=== PATIENT | male | born 1990 | race African-American/Black ===

== ENCOUNTER 2018-06-20 14:15 | Emergency (ER) | payer SELFPAY ==
[~2018-06-20] VITALS: Ht 177.8 cm; Wt 70.0 kg
[2018-06-20 14:30] VITALS: BP 117/71
--- NOTE | 2018-06-20 14:30 | NUR ---
PT AMBULATES BACK TO THE LOBBY
--- NOTE | 2018-06-20 16:55 | NUR ---
CALLED TO A BED, NO ANSWER
== END 2018-06-20 16:55 | disposition left against medical advice (07) ==
LOC: MED 14:15
DX: J00 Acute nasopharyngitis [common cold] (principal); Z53.21 Procedure and treatment not carried out due to patient leaving prior to being seen by health care provider
CPT/HCPCS: 71046

== ENCOUNTER 2018-12-24 09:50 | Emergency (ER) | payer OTHER ==
[~2018-12-24] VITALS: Ht 177.8 cm; Wt 67.6 kg
[2018-12-24 09:57] VITALS: BP 104/59
--- NOTE | 2018-12-24 10:03 | NUR ---
PT AMBULATED TO ER BED 11
--- NOTE | 2018-12-24 10:20 | NUR ---
C/O BILAT EYE PAIN 8/10 FOR APPROX 4 DAYS. +BLURRY/DOUBLE VISION. PT REPORTS WHITE DISCHARGE IN BILAT EYES EVERY MORNING. USES CONTACTS. DENIES ANY FEVER/NAUSEA/VOMITING. AFEBRILE AT THIS TIME.
[2018-12-24] MEDS ORDERED: FLUORESCEIN OPTH STRIP 0.6 MG OP ONE (10:30)
[2018-12-24] MEDS ORDERED: TETRACAINE HCL/PF 0.5% OPTH 4 ML BTL OP ONE (10:30)
[2018-12-24 11:41] VITALS: BP 108/62
--- NOTE | 2018-12-24 11:42 | NUR ---
Patient discharged with v/s stable. Written and verbal after care instructions given and explained. Patient alert, oriented and verbalized understanding of instructions. Ambulatory with steady gait. All questions addressed prior to discharge. ID band removed. Patient advised to follow up with PMD. Rx of tobramycin ophtalmic erin given. Patient educated on indication of medication including possible reaction and side effects. Opportunity to ask questions provided and answered.
== END 2018-12-24 11:42 | disposition home or self-care (01) ==
LOC: MED 09:50
DX: H10.9 Unspecified conjunctivitis (principal); F17.210 Nicotine dependence, cigarettes, uncomplicated; Z88.5 Allergy status to narcotic agent; Z88.6 Allergy status to analgesic agent
CPT/HCPCS: 99283

== ENCOUNTER 2021-07-10 17:16 | Emergency (ER) | payer MEDICAID, OTHER ==
[~2021-07-10] VITALS: Ht 177.8 cm; Wt 70.8 kg
[2021-07-10 17:42] VITALS: BP 116/74
[2021-07-10] MEDS ORDERED: KETOROLAC 30 MG/ML VIAL IM ONE (21:40)
--- NOTE | 2021-07-10 21:55 | NUR ---
PT EVALUATED AND CLEARED FOR DISCHARGE BY DR. BARBOUR. PER DR. FRANKEL VERBAL DISCHARGE INSTRUCTIONS WERE GIVEN. PT LEFT FACILITY AT THIS TIME.
== END 2021-07-10 21:55 | disposition home or self-care (01) ==
LOC: MED 17:16
DX: R07.89 Other chest pain (principal); F17.200 Nicotine dependence, unspecified, uncomplicated
CPT/HCPCS: 71045; 93005; 99283